=== PATIENT | male | born 1965 | race Caucasian/White ===

== ENCOUNTER 2019-03-05 15:08 | Inpatient (IN) | payer OTHER ==
[~2019-03-05] VITALS: Ht 177.8 cm; Wt 65.8 kg
[2019-03-05] MEDS ORDERED: ALBU8.5H8 IH (15:18)
[2019-03-05] MEDS ORDERED: [UNRECOGNIZED DRUG - OTHER] (15:18)
[2019-03-05 16:04] LABS: BASOPHILS % (AUTO) 0.3 % (0.0-2.0); EOSINOPHILS # (AUTO) 0.1 K/uL (0.0-0.7); EOSINOPHILS % (AUTO) 0.4 % (0.0-7.0); HEMATOCRIT 39.4 % (36.7-47.1); HEMOGLOBIN 12.9 g/dL (12.5-16.3); LYMPHOCYTES # (AUTO) 1.5 K/uL (20.0-40.0); LYMPHOCYTES % (AUTO) 11.3 % (20.5-51.5); MEAN CORPUSCULAR HEMOGLOBIN 28.7 uug (23.8-33.4); MEAN CORPUSCULAR HGB CONC 33 g/dL (32.5-36.3); MEAN CORPUSCULAR VOLUME 87.3 fL (73.0-96.2); MONOCYTES # (AUTO) 0.7 K/uL (2.0-10.0); MONOCYTES % (AUTO) 4.9 % (0.0-11.0); NEUTROPHILS # (AUTO) 11.3 K/uL (1.8-8.9); NEUTROPHILS % (AUTO) 83.1 % (38.5-71.5); PLATELET COUNT (AUTO) 263 K/uL (152-348); RED BLOOD CELL COUNT(AUTO) 4.51 MIL/uL (4.06-5.63); WHITE BLOOD COUNT (AUTO) 13.6 K/uL (3.6-10.2)
[2019-03-05 16:06] LABS: CARBON DIOXIDE 29 mmol/L (21-32); CHLORIDE 104 mmol/L (98-107); CREATININE 1.1 mg/dL (0.6-1.3); GLUCOSE 120 mg/dL (74-106); POTASSIUM 4.1 mmol/L (3.5-5.1); UREA NITROGEN, BLOOD 12 mg/dL (7-18)
[2019-03-05 16:11] LABS: ALANINE AMINOTRANSFERASE < 6 U/L (16-63); ALKALINE PHOSPHATASE 70 U/L (50-136); ASPARTATE AMINOTRANSFERASE 11 U/L (15-37); BILIRUBIN,DIRECT 0.1 mg/dL (0.0-0.2); BILIRUBIN,TOTAL 0.3 mg/dL (0.2-1.0); TOTAL PROTEIN, SERUM 7.4 g/dL (6.4-8.2)
[2019-03-05] MEDS ORDERED: PIPERACILLIN/TAZOBACTAM/D5W 50 ML IV ONE (17:41)
[2019-03-05] MEDS ORDERED: PIPERACILLIN SODIUM/TAZOBACTAM 3.375 G in IV DEXTROSE 5% 50 ML IV ONE (17:45)
[2019-03-05] MEDS ORDERED: VANCOMYCIN IV 1,000 MG in IV DEXTROSE 5% 250 ML IV ONE (17:45)
[2019-03-05] MEDS ORDERED: VANCOMYCIN IV 200 ML ONE (18:10)
[2019-03-05] MEDS ORDERED: MORPHINE SULFATE 4 MG/1 ML DISP.SYRIN IV ONE (18:30)
[2019-03-05] MEDS ORDERED: MORPHINE SULFATE 4 MG/1 ML DISP.SYRIN ONE (18:51)
[2019-03-05] MEDS: ENOXAPARIN SODIUM 80 MG/0.8 ML DISP.SYRIN SQ SCH (19:39)
[2019-03-05] MEDS ORDERED: ENOXAPARIN SODIUM 100 MG/ML DISP.SYRIN SQ ONE (19:39)
[2019-03-05 21:05] VITALS: BP 131/78
[2019-03-05] MEDS ORDERED: ALBUTEROL SULFATE 2.5 MG/3 ML NEBU NEB PRN (21:15)
[2019-03-05] MEDS ORDERED: ZOLPIDEM 5 MG TABLET PO PRN (21:15)
[2019-03-05] MEDS ORDERED: ONDANSETRON 4 MG/2 ML VIAL IV PRN (21:15)
[2019-03-05] MEDS ORDERED: ACETAMINOPHEN 325 MG TABLET PO PRN (21:15)
[2019-03-05] MEDS ORDERED: CLINDAMYCIN PHOSPHATE 600 MG/4 ML VIAL ONE (22:02)
[2019-03-05] MEDS: HYDROCODONE/APAP 5-325MG TABLET PO PRN (22:13)
[2019-03-05] MEDS: CLINDAMYCIN PHOSPHATE IV 600 MG in IV DEXTROSE 5% 100 ML IV SCH (22:46)
[2019-03-06] VITALS: BP 98/64
[2019-03-06 04:00] VITALS: BP 105/58
[2019-03-06 06:25] LABS: BASOPHILS % (AUTO) 0.3 % (0.0-2.0); EOSINOPHILS # (AUTO) 0.2 K/uL (0.0-0.7); EOSINOPHILS % (AUTO) 2.6 % (0.0-7.0); HEMOGLOBIN 12.4 g/dL (12.5-16.3); LYMPHOCYTES # (AUTO) 1.8 K/uL (20.0-40.0); LYMPHOCYTES % (AUTO) 19.4 % (20.5-51.5); MEAN CORPUSCULAR HGB CONC 34 g/dL (32.5-36.3); MEAN CORPUSCULAR VOLUME 86.4 fL (73.0-96.2); MONOCYTES # (AUTO) 0.6 K/uL (2.0-10.0); MONOCYTES % (AUTO) 6.8 % (0.0-11.0); NEUTROPHILS # (AUTO) 6.5 K/uL (1.8-8.9); NEUTROPHILS % (AUTO) 70.9 % (38.5-71.5); PLATELET COUNT (AUTO) 260 K/uL (152-348); RED BLOOD CELL COUNT(AUTO) 4.28 MIL/uL (4.06-5.63); WHITE BLOOD COUNT (AUTO) 9.2 K/uL (3.6-10.2)
[2019-03-06] MEDS: CLINDAMYCIN PHOSPHATE IV 600 MG in IV DEXTROSE 5% 100 ML IV SCH ×3 (06:27→21:11)
[2019-03-06] MEDS: PANTOPRAZOLE SODIUM 40 MG TABLET.DR PO SCH (06:30)
[2019-03-06] MEDS: HYDROCODONE/APAP 5-325MG TABLET PO PRN ×3 (06:30→17:10)
[2019-03-06] MEDS: ENOXAPARIN SODIUM 80 MG/0.8 ML DISP.SYRIN SQ SCH (06:31)
[2019-03-06 06:53] LABS: ALANINE AMINOTRANSFERASE < 6 U/L (16-63); ALKALINE PHOSPHATASE 65 U/L (50-136); ASPARTATE AMINOTRANSFERASE 16 U/L (15-37); BILIRUBIN,TOTAL 0.2 mg/dL (0.2-1.0); CARBON DIOXIDE 29 mmol/L (21-32); CHLORIDE 102 mmol/L (98-107); CHOLESTEROL 117 mg/dL (<200); CREATININE 1.1 mg/dL (0.6-1.3); GLUCOSE 131 mg/dL (74-106); HDL CHOLESTEROL 35 mg/dL (40-60); MAGNESIUM 1.9 mg/dL (1.8-2.4); POTASSIUM 3.9 mmol/L (3.5-5.1); TRIGLYCERIDES 40 MG/DL (30-150); UREA NITROGEN, BLOOD 12 mg/dL (7-18)
[2019-03-06] MEDS: ACIDOPHILUS/BULGARICUS CHEW TAB PO SCH ×2 (08:36→21:11)
[2019-03-06] MEDS ORDERED: RIVAROXABAN 15 MG TABLET PO SCH (09:00)
[2019-03-06] MEDS ORDERED: IV NS 1000 ML 1,000 ML IV ONE (09:30)
[2019-03-06 11:47] VITALS: BP 100/64
[2019-03-06] MEDS: NICOTINE 21 MG/24HR PATCH TD SCH (14:13)
[2019-03-06 16:05] VITALS: BP 109/70
[2019-03-06] MEDS ORDERED: FLUT1BLS6 IH (16:13)
[2019-03-06] MEDS: RIVAROXABAN 15 MG TABLET PO SCH (17:10)
[2019-03-06 20:39] VITALS: BP 117/71
[2019-03-06] MEDS: HYDROCODONE/APAP 10-325 MG TABLET PO PRN (21:11)
[2019-03-07 04:44] VITALS: BP 119/80
[2019-03-07] MEDS: CLINDAMYCIN PHOSPHATE IV 600 MG in IV DEXTROSE 5% 100 ML IV SCH (05:03)
[2019-03-07] MEDS: HYDROCODONE/APAP 10-325 MG TABLET PO PRN ×2 (05:44→10:25)
[2019-03-07] MEDS: PANTOPRAZOLE SODIUM 40 MG TABLET.DR PO SCH (06:04)
[2019-03-07 06:32] LABS: BASOPHILS % (AUTO) 0.1 % (0.0-2.0); EOSINOPHILS # (AUTO) 0.1 K/uL (0.0-0.7); EOSINOPHILS % (AUTO) 1.3 % (0.0-7.0); HEMATOCRIT 38.8 % (36.7-47.1); LYMPHOCYTES # (AUTO) 0.9 K/uL (20.0-40.0); LYMPHOCYTES % (AUTO) 8.8 % (20.5-51.5); MEAN CORPUSCULAR HGB CONC 34 g/dL (32.5-36.3); MEAN CORPUSCULAR VOLUME 86.4 fL (73.0-96.2); MONOCYTES # (AUTO) 0.6 K/uL (2.0-10.0); MONOCYTES % (AUTO) 5.7 % (0.0-11.0); NEUTROPHILS % (AUTO) 84.1 % (38.5-71.5); PLATELET COUNT (AUTO) 269 K/uL (152-348); RED BLOOD CELL COUNT(AUTO) 4.48 MIL/uL (4.06-5.63); WHITE BLOOD COUNT (AUTO) 10.7 K/uL (3.6-10.2)
[2019-03-07 06:33] LABS: POTASSIUM 4.2 mmol/L (3.5-5.1)
[2019-03-07] MEDS: NICOTINE 21 MG/24HR PATCH TD SCH (09:09)
[2019-03-07] MEDS: ACIDOPHILUS/BULGARICUS CHEW TAB PO SCH (09:09)
[2019-03-07] MEDS: RIVAROXABAN 15 MG TABLET PO SCH (09:10)
[2019-03-07 11:38] VITALS: BP 122/73
[2019-03-07] MEDS ORDERED: RIVA10TA PO (12:07)
[2019-03-07] MEDS ORDERED: HYDR-4354 PO (12:07)
[2019-03-07] MEDS ORDERED: RIVA20TA PO (12:07)
[2019-03-07] MEDS ORDERED: CLIN300C11 PO (12:07)
== END 2019-03-07 13:15 | disposition home or self-care (01) | DRG 197 ==
LOC: ER 15:08 → TELE3 20:19 → MEDSURG3 03-06 11:33
PROVIDERS: ADMIT Internal Medicine; ATTEND Nurse Practitioner Acute Care
DX: I82.612 Acute embolism and thrombosis of superficial veins of left upper extremity (principal); E44.0 Moderate protein-calorie malnutrition; K50.90 Crohn's disease, unspecified, without complications; L03.114 Cellulitis of left upper limb; R00.1 Bradycardia, unspecified; Z80.1 Family history of malignant neoplasm of trachea, bronchus and lung; J44.9 Chronic obstructive pulmonary disease, unspecified; Z90.49 Acquired absence of other specified parts of digestive tract; Z66 Do not resuscitate; F17.210 Nicotine dependence, cigarettes, uncomplicated; R94.31 Abnormal electrocardiogram [ECG] [EKG]; R73.9 Hyperglycemia, unspecified; Z79.51 Long term (current) use of inhaled steroids
CPT/HCPCS: 36415; 71045; 73080; 83605; 83735; 84100; 85025; 85730; 87040; 93005; A4663; G0378; J1650; J2270; J2543; J3370; J3490; J7030; J7060

== ENCOUNTER 2021-09-06 01:48 | Inpatient (IN) | payer MEDICAID, OTHER ==
[~2021-09-06] VITALS: Ht 177.8 cm; Wt 68.0 kg
[~2021-09-06 01:48] MED LIST: ALBU8.5H8 IH; CLIN300C12 PO; FLUT1BLS6 IH; HYDR-4354 PO; RIVA10TA PO; RIVA20TA PO
--- NOTE | 2021-09-06 01:50 | NUR ---
Moraima ZAZUETA AT BEDSIDE, MSE IN PROGRESS.
[2021-09-06] MEDS ORDERED: IPRATROPIUM BROMIDE 0.5 MG/2.5 ML NEBU NEB ONE (02:15)
[2021-09-06] MEDS ORDERED: NITROGLYCERIN OINT 1 GM PACKET TP ONE ×2 (02:15→02:18)
[2021-09-06] MEDS ORDERED: predniSONE 10 MG TABLET PO ONE (02:15)
[2021-09-06] MEDS ORDERED: ALBUTEROL SULFATE 2.5 MG/3 ML NEBU NEB ONE (02:15)
[2021-09-06] MEDS ORDERED: predniSONE 10 MG TABLET ONE (02:18)
--- NOTE | 2021-09-06 02:20 | NUR ---
RT AT BEDSIDE.
[2021-09-06] MEDS ORDERED: IPRATROPIUM BROMIDE 0.5 MG/2.5 ML NEBU ONE ×3 (02:21→11:03)
[2021-09-06] MEDS ORDERED: ALBUTEROL SULFATE 2.5 MG/3 ML NEBU ONE ×3 (02:21→11:03)
--- NOTE | 2021-09-06 02:22 | NUR ---
XRAY AND LAB AT BEDSIDE.
[2021-09-06 02:44] LABS: HEMATOCRIT 48.2 % (36.7-47.1); MEAN CORPUSCULAR HEMOGLOBIN 28.5 uug (23.8-33.4); MEAN CORPUSCULAR VOLUME 86.6 fL (73.0-96.2); PLATELET COUNT (AUTO) 168 K/uL (152-348)
[2021-09-06 02:56] LABS: CARBON DIOXIDE 36 mmol/L (21-32); CHLORIDE 99 mmol/L (98-107); CREATININE 1.1 mg/dL (0.6-1.3); GLUCOSE 94 mg/dL (74-106); POTASSIUM 4.8 mmol/L (3.5-5.1); UREA NITROGEN, BLOOD 19 mg/dL (7-18)
--- NOTE | 2021-09-06 03:03 | NUR ---
US (NESSA) AT BEDSIDE.
[2021-09-06 03:09] LABS: ALANINE AMINOTRANSFERASE 21 U/L (16-63); ALKALINE PHOSPHATASE 96 U/L (50-136); ASPARTATE AMINOTRANSFERASE 16 U/L (15-37); BILIRUBIN,DIRECT 0.1 mg/dL (0.0-0.2); BILIRUBIN,TOTAL 0.3 mg/dL (0.2-1.0); TOTAL PROTEIN, SERUM 8.1 g/dL (6.4-8.2)
[2021-09-06] MEDS ORDERED: FUROSEMIDE 20 MG/2 ML VIAL ONE (03:59)
[2021-09-06] MEDS ORDERED: SULFAMETH/TRIMETH 800/160 MG TABLET ONE (03:59)
[2021-09-06] MEDS ORDERED: FUROSEMIDE 40 MG/4 ML VIAL IV ONE (04:00)
[2021-09-06] MEDS ORDERED: SULFAMETH/TRIMETH 800/160 MG TABLET PO ONE (04:00)
[2021-09-06] MEDS ORDERED: IOHEXOL 350 100 ML INFUS..BTL ONE (04:08)
[2021-09-06] MEDS ORDERED: MORPHINE SULFATE 4 MG/1 ML DISP.SYRIN ONE (04:10)
--- NOTE | 2021-09-06 04:11 | NUR ---
PT AMBULATED TO RESTROOM, STEADY GAIT. NO DIZZYNESS NOTED. NO SOB/LABORED BREATHING NOTED.
[2021-09-06] MEDS ORDERED: MORPHINE SULFATE 4 MG/1 ML DISP.SYRIN IV ONE (04:15)
--- NOTE | 2021-09-06 04:23 | NUR ---
PT TAKEN DOWN FOR CT.
[2021-09-06 04:25] LABS: ABG BASE EXCESS 3.6 mmol/L; ABG HCO3 30.8 mmol/L; ABG PCO2 57.3 mmHg (35.0-45.0); ABG PH 7.348 (7.350-7.450); ABG PO2 52.3 mmHg (75.0-100.0); ABG SITE RIGHT RADIAL; ABG TOTAL HEMOGLOBIN 14.1 G/dL (13.5-18.0); COHb 3.7 % (0.5-1.5); MetHb 0.3 % (0.0-1.5); O2Hb 82.5 % (94.0-97.0); VENT MODE ROOM AIR
[2021-09-06] MEDS ORDERED: BUDE10.26 IH (04:42)
--- NOTE | 2021-09-06 04:42 | NUR ---
PT RETURNED FROM CT.
--- NOTE | 2021-09-06 04:46 | NUR ---
Margarette from [facility] at [phone] states the pt has [facility] and [facility] and we do not need authorization for admission. I informed her the admitting diagnosis of acute respiratory distress and the er doctor currently on duty. she requested to fax the face sheet to [phone].
[2021-09-06 04:54] LABS: *BILIRUBIN,URIN NEGATIVE (NEGATIVE); *BLOOD, URINE NEGATIVE (NEGATIVE); *CLARITY,URINE CLEAR (CLEAR); *KETONES,URINE NEGATIVE (NEGATIVE); *UROBILINOGEN,URINE 0.2 E.U./dl (NORMAL); LEUKOCYTE ESTERASE ,URINE NEGATIVE (NEGATIVE); NITRITE, URINE NEGATIVE (NEGATIVE); UGLUCOSE NEGATIVE (NEGATIVE)
--- NOTE | 2021-09-06 04:58 | NUR ---
SARAH OTTO PAGED FOR PANEL CALL.
[2021-09-06 05:00] LABS: *COLOR,URINE STRAW (YELLOW)
[2021-09-06 05:21] LABS: *AMPHETAMINE, URINE NEGATIVE (NEGATIVE); *CANNABINOID, URINE NEGATIVE (NEGATIVE); *COCCAINE, URINE NEGATIVE (NEGATIVE); *OPIATE, URINE POSITIVE (NEGATIVE)
--- NOTE | 2021-09-06 05:24 | NUR ---
PT ABLE TO USE URINAL, OUTPUT OF 800cc RECORDED. CLEAR YELLOW URINE, NO FOUL ODOR.
--- NOTE | 2021-09-06 05:32 | NUR ---
2ND PAGE FOR CLARITA RESENT.
[2021-09-06 05:46] LABS: *PHENCYCLIDINE SCREEN,URINE NEGATIVE (NEGATIVE)
--- NOTE | 2021-09-06 05:53 | NUR ---
DR. HARE SPOKE WITH KIRTI OTTO, PT ACCEPTED.
[2021-09-06] MEDS ORDERED: ACETAMINOPHEN 325 MG TABLET PO PRN ×2 (06:00→10:30)
[2021-09-06] MEDS ORDERED: MORPHINE SULFATE 2 MG/1 ML DISP.SYRIN IV PRN ×2 (06:00→10:30)
[2021-09-06] MEDS ORDERED: MAGNESIUM HYDROXIDE 30 ML LIQUID UDC PO PRN ×2 (06:00→10:30)
[2021-09-06] MEDS ORDERED: ONDANSETRON 4 MG/2 ML VIAL IV PRN ×2 (06:00→10:30)
[2021-09-06] MEDS ORDERED: REMEDY ESSENTIAL ZINC PASTE 113 GM TP PRN (06:00)
[2021-09-06] MEDS ORDERED: methylPREDNISolone SOD SUCC 125 MG/2 ML VIAL IV ONE (06:00)
--- NOTE | 2021-09-06 06:14 | NUR ---
PT URINAL EMPTIED AGAIN WITH OUTPUT IOF 1000cc.
[2021-09-06] MEDS ORDERED: SWABABLE VALVE TRANSFER SET EA MC ONE (06:59)
[2021-09-06] MEDS ORDERED: PANTOPRAZOLE SODIUM 40 MG TABLET.DR PO SCH (07:00)
--- NOTE | 2021-09-06 07:08 | NUR ---
REPORT GIVEN TO ADARSH. PT RESTING COMFORTABLY IN BED, NO SOB OR LABORED BREATHING. VSS.
--- NOTE | 2021-09-06 07:10 | NUR ---
Recieved pt in bed, resting w/ both eyes closed. NAD noted, o2 at 3L/min.
[2021-09-06] MEDS ORDERED: PANTOPRAZOLE SODIUM 40 MG TABLET.DR PO ONE (07:53)
[2021-09-06] MEDS ORDERED: methylPREDNISolone SOD SUCC 125 MG/2 ML VIAL ONE (07:53)
[2021-09-06] MEDS ORDERED: MORPHINE SULFATE 4 MG/1 ML DISP.SYRIN IV PRN (08:00)
[2021-09-06] MEDS: IPRATROPIUM BROMIDE 0.5 MG/2.5 ML NEBU NEB SCH ×2 (08:10→11:30)
[2021-09-06] MEDS: ALBUTEROL SULFATE 2.5 MG/3 ML NEBU NEB SCH ×2 (08:11→11:30)
[2021-09-06] MEDS ORDERED: ENOXAPARIN SODIUM 40 MG/0.4 ML DISP.SYRIN SQ SCH (09:00)
[2021-09-06] MEDS ORDERED: NICOTINE 21 MG/24HR PATCH TD SCH (09:00)
[2021-09-06 09:51] VITALS: BP 111/71
[2021-09-06] MEDS ORDERED: FLUTICASONE/VILANTEROL 1 EACH BLST.W.DEV INH SCH (10:30)
[2021-09-06] MEDS ORDERED: TEMAZEPAM 15 MG CAPSULE PO PRN (10:30)
[2021-09-06] MEDS ORDERED: FUROSEMIDE 20 MG/2 ML VIAL IV SCH (10:30)
--- NOTE | 2021-09-06 10:55 | NUR ---
Admitted patient from ER dx resp failure. Alert and oriented x4. On 3Lpm o2 saturating 95%. No sob noted. Denies pain. Routine care admission done. Wound pictures taken and filed. Patient prefers to keep his wallet and credit cards. Bed lowest and locked, siderails x2 up. At this time, pt is resting. No resp distress noted.
[2021-09-06] MEDS ORDERED: levoFLOXacin 500 MG/D5W 500 MG in PREMIXED 1 EACH IV SCH (11:00)
--- NOTE | 2021-09-06 11:03 | NUR ---
WOUND CARE CONSULT: PT PRESENTS WITH REDNESS AND SWELLING TO BILATERAL LOWER LEGS WITH DRY WOUNDS TO RT LOWER LEG, PRESENT ON ADMISSION. DR BALDERAS NOTIFIED OF DPM CONSULT REQUEST. PT IS INDEPENDENT WITH BED MOBILITY AND IS CONTINENT. IN AGREEMENT WITH PLAN OF CARE. Addendum: 09/06/21 at 1105 by KO MAJOR RN CORRECTION: ABOVE NOTE WAS WRITTEN BY CLAYTON CARTWRIGHT, BUSINESS SYSTEM MANAGER.
--- NOTE | 2021-09-06 12:23 | NUR ---
Around 1055am, patient asked to go to the bathroom and was assisted by PERSONAL FINANCIAL REPRESENTATIVE. At 1105 code anastasiia was called to the patient's room. Patient was found in bed with o2 connected via nc. Hospital staff asked the patient if he was smoking due to weird smell coming from the bathroom. Patient denied it. However, staff found crush white pills in plastic in the bathroom, asked pt what it was and he answered Fentanyl. Patient also had cigarettes and school age lead teacher and Dept Director Elaina in the room explained to the patient he can't have Fentanyl and cigarrettes/school age lead teacher in his pocket while he's here. Pt refused to give Fentanyl and states he'll leave and go to another hospital instead. Security was called and spoke with pt and still refused to give up medication. Patient was given the option by Director and Sulfuric Acid Plant Supervisor to stay with risks and benefits explained, but pt strongly refused saying he's leaving, got up and got dressed. Offered to call someone for him but he already called using personal cellphone and didn't say whom he called. Patient left ama at 11:15am. Dr. Wolf is aware.
[2021-09-06] MEDS ORDERED: methylPREDNISolone SOD SUCC 40 MG/ML VIAL IV SCH (14:00)
--- NOTE | 2021-09-06 18:42 | NUR ---
Patient rushed out of the hospital did not give nurse the chance to do body check. IV on Left forearm under the splint wrap was not removed. Informed supervisor wheel [employer] [place] and coating and embossing unit operator Elaina, who informed security who called [employer]. Called Mike from security for follow up, he said he will send [employer] to our floor when he comes. At this time police has not come. Will endorse accordingly.
[2021-09-06] MEDS ORDERED: FUROSEMIDE 40 MG/4 ML VIAL IV SCH (21:00)
[2021-09-06] MEDS ORDERED: DOCUSATE SODIUM 100 MG CAPSULE PO SCH (21:00)
== END 2021-09-06 11:15 | disposition left against medical advice (07) | DRG 383 ==
LOC: ER 01:55 → TELE3 07:41
PROVIDERS: ADMIT Internal Medicine; ATTEND Internal Medicine
DX: L03.114 Cellulitis of left upper limb (principal); J96.00 Acute respiratory failure, unspecified whether with hypoxia or hypercapnia; F17.210 Nicotine dependence, cigarettes, uncomplicated; Z79.01 Long term (current) use of anticoagulants; L03.116 Cellulitis of left lower limb; L03.115 Cellulitis of right lower limb; Z99.81 Dependence on supplemental oxygen; Z86.19 Personal history of other infectious and parasitic diseases; J44.1 Chronic obstructive pulmonary disease with (acute) exacerbation; F11.10 Opioid abuse, uncomplicated; I87.2 Venous insufficiency (chronic) (peripheral); L97.819 Non-pressure chronic ulcer of other part of right lower leg with unspecified severity; Z91.81 History of falling; M79.642 Pain in left hand; Z20.822 Contact with and (suspected) exposure to COVID-19; I50.9 Heart failure, unspecified
CPT/HCPCS: 36415; 36600; 71045; 71275; 73130; 84484; 85025; 93005; 94640; G0378; J1650; J1940; J1956; J2270; J2930; J3590; J7512; Q9967